=== PATIENT | female | born 1930 | race Caucasian/White ===

== ENCOUNTER 2016-09-04 09:20 | Emergency (ER) | payer MEDICARE, BC ==
[~2016-09-04] VITALS: Ht 165.1 cm; Wt 56.7 kg
[2016-09-04] MEDS ORDERED: IBUP600T26 PO (09:40)
[2016-09-04] MEDS ORDERED: ASPI81TA85 PO (09:40)
[2016-09-04] MEDS ORDERED: KETOROLAC 30 MG/ML VIAL (J1885) IV ONE (10:15)
[2016-09-04 10:33] LABS: BASO % 0.3 % (0.0-1.0); EOS % 0.9 % (0.0-3.0); LARGE UNSTAINED CELL # 0.1 K/mm3 (0.0-0.4); LARGE UNSTAINED CELL % 2.2 % (0.0-4.0); LYMPH # 0.8 K/mm3 (1.5-4.5); LYMPH % 20.7 % (24.0-44.0); MEAN CORPUSCULAR HEMOGLOBIN 29.3 pg (27.0-33.0); MEAN CORPUSCULAR HGB CONC 32.9 g/dl (32.0-36.5); MEAN CORPUSCULAR VOLUME 88.9 fl (80.0-96.0); MONO # 0.2 K/mm3 (0.0-0.8); MONO % 6.7 % (0.0-5.0); NEUTROPHILS # 2.3 K/mm3 (1.8-7.7); NEUTROPHILS % 69.2 % (36.0-66.0); PLATELET COUNT, AUTOMATED 210 k/mm3 (150-450); RED CELL DISTRIBUTION WIDTH 13.4 % (11.5-14.5); WHITE BLOOD COUNT 3.4 K/mm3 (4.0-10.0)
[2016-09-04 11:09] LABS: ALBUMIN 3.2 GM/DL (3.2-5.2); ALKALINE PHOSPHATASE 76 U/L (45-117); ALT/SGPT 19 U/L (12-78); AMYLASE 65 U/L (25-115); ANION GAP 5 MEQ/L (8-16); AST/SGOT 21 U/L (15-37); BILIRUBIN,DIRECT < 0.1 MG/DL (0.0-0.2); BILIRUBIN,TOTAL 0.4 MG/DL (0.2-1.0); BLOOD UREA NITROGEN 13 MG/DL (7-18); CALCIUM LEVEL 8.8 MG/DL (8.8-10.2); CARBON DIOXIDE LEVEL 27 MEQ/L (21-32); CHLORIDE LEVEL 105 MEQ/L (98-107); CREATININE FOR GFR 0.85 MG/DL (0.55-1.02); GLOMERULAR FILTRATION RATE > 60.0 (>32); GLUCOSE, FASTING 91 MG/DL (83-110); SODIUM LEVEL 137 MEQ/L (136-145); TOTAL PROTEIN 7.8 GM/DL (6.4-8.2)
--- NOTE | 2016-09-04 11:26 | REP ---
CHEST, TWO VIEWS: HISTORY: Abdominal pain. COMPARISON: 11/04/2015 There is loss of volume in the right hemithorax. Linear densities are present in the right lower lobe consistent with scarring. A 2.5 cm parenchymal density is present in the left lower lobe. This is unchanged in size compared to the previous study. The heart is normal in size. The pulmonary vasculature is normal in appearance. There is an old compression fracture of a lower thoracic vertebral body. Surgical clips are present in the right hilum. IMPRESSION: 1. Right lower lobe scarring. 2. There is a 2.5 mm parenchymal density in the left lower lobe that is unchanged in size compared to the previous study. Signed by Brad Sarkar MD 09/04/2016 11:28 A
--- NOTE | 2016-09-04 11:55 | REP ---
CT ABDOMEN/PELVIS WITHOUT CONTRAST: CT abdomen/pelvis performed without oral or IV contrast with sagittal and coronal reconstruction images. In the visualized lung bases, there are interstitial fibrotic changes inferiorly on the right as well as on the left with small bullous change in the left lower lobe and a cluster of benign calcifications. Liver, gallbladder, spleen, adrenals, pancreas, and kidneys are grossly unremarkable. There is no evidence of renal or ureteral calculus and no hydroureteronephrosis. There are mild to moderate atherosclerotic calcifications of the abdominal aorta without aneurysm. There is no adenopathy, free air, or free fluid. No bowel wall thickening is seen. No pelvic mass is seen. Urinary bladder appears grossly unremarkable. There is mild compression deformity of T12 vertebral body. This is new when compared to the prior CT of 11/30/2015. Otherwise, there are diffuse degenerative changes. IMPRESSION: No acute abnormalities in the abdomen or pelvis. However, there is a new mild to moderate compression deformity of T12, which was not present on the prior exam of 11/30/2015. Signed by Ashkan Storey MD 09/06/2016 06:55 P
[2016-09-04 12:31] VITALS: BP 178/100
[2016-09-04] MEDS ORDERED: TYLE650T35 PO (13:08)
--- NOTE | 2016-09-05 09:27 | ED PDOC ---
Post-Departure Follow-Up certified letter to pt re formal read of cxr. no pcp documented. needs follow up Winifred Clement MD September 05, 2016 09:27
== END 2016-09-04 13:37 | disposition home or self-care (01) ==
LOC: M ED 10:30
DX: M54.5 Low back pain (principal); I10 Essential (primary) hypertension; S22.089A Unspecified fracture of T11-T12 vertebra, initial encounter for closed fracture; W19.XXXA Unspecified fall, initial encounter; Y92.89 Other specified places as the place of occurrence of the external cause; Y93.89 Activity, other specified; Y99.8 Other external cause status; Z85.118 Personal history of other malignant neoplasm of bronchus and lung; Z79.82 Long term (current) use of aspirin
CPT/HCPCS: 71020; 74176; 80048; 80076; 81001; 82150; 83690; 85025; 87086; 96374; 99283; J1885

== ENCOUNTER 2016-09-14 09:23 | Emergency (ER) | payer MEDICARE, BC ==
[~2016-09-14] VITALS: Ht 165.1 cm; Wt 57.6 kg
[~2016-09-14 09:23] MED LIST: ASPI81TA85 PO; IBUP600T26 PO; TYLE650T35 PO
[2016-09-14] MEDS ORDERED: ASPI81CH PO (09:32)
[2016-09-14] MEDS ORDERED: LEVO25TA5 PO (09:32)
--- NOTE | 2016-09-14 14:06 | REP ---
THORACIC SPINE, THREE VIEWS: HISTORY: T12 fracture. There is no acute fracture or subluxation. There is an old fracture of the T12 vertebral body with minimal height loss. There is loss of height of severe mid and lower thoracic intervertebral discs consistent with disc degeneration. Osteophytes are present in the mid and lower thoracic spine. IMPRESSION: 1. Degenerative change as described above. 2. Old T12 vertebral body fracture with minimal height loss unchanged compared to the previous study. Signed by Brad Sarkar MD 09/14/2016 02:14 P
[2016-09-14 14:38] VITALS: BP 186/84
== END 2016-09-14 14:50 | disposition home or self-care (01) ==
LOC: M ED 11:06 → MERGE 11:06 → M ED 14:50
DX: M54.5 Low back pain (principal); S22.080S Wedge compression fracture of T11-T12 vertebra, sequela; M51.34 Other intervertebral disc degeneration, thoracic region; X58.XXXS Exposure to other specified factors, sequela; Y92.89 Other specified places as the place of occurrence of the external cause; Z91.81 History of falling; E03.9 Hypothyroidism, unspecified; Z79.899 Other long term (current) drug therapy; Z79.82 Long term (current) use of aspirin; Z85.118 Personal history of other malignant neoplasm of bronchus and lung

== ENCOUNTER → 2016-12-17 | Outpatient (CLI) | payer MEDICARE, BC ==
[~2016-12-17] MED LIST changes: +ASPI81CH PO; +IBUP-1022 PO; -IBUP600T26 PO; +LEVO25TA5 PO
[2016-12-17 14:01] LABS: MEAN CORPUSCULAR HEMOGLOBIN 28.9 pg (27.0-33.0); MEAN CORPUSCULAR HGB CONC 31.5 g/dl (32.0-36.5); MEAN CORPUSCULAR VOLUME 91.6 fl (80.0-96.0); WHITE BLOOD COUNT 3.5 K/mm3 (4.0-10.0)
[2016-12-17 14:39] LABS: VITAMIN B12 LEVEL 272 PG/ML (247-911)
[2016-12-17 15:20] LABS: ALBUMIN 3.4 GM/DL (3.2-5.2); ALBUMIN/GLOBULIN RATIO 0.92 (1.00-1.93); ALKALINE PHOSPHATASE 80 U/L (45-117); ALT/SGPT 22 U/L (12-78); ANION GAP 9 MEQ/L (8-16); AST/SGOT 25 U/L (15-37); BILIRUBIN,TOTAL 0.3 MG/DL (0.2-1.0); BLOOD UREA NITROGEN 19 MG/DL (7-18); CALCIUM LEVEL 9.2 MG/DL (8.8-10.2); CARBON DIOXIDE LEVEL 27 MEQ/L (21-32); CHLORIDE LEVEL 104 MEQ/L (98-107); CREATININE FOR GFR 0.81 MG/DL (0.55-1.02); FERRITIN 232 NG/ML (8-252); GLOMERULAR FILTRATION RATE > 60.0 (>32); GLUCOSE, FASTING 76 MG/DL (83-110); PERCENT SATURATION 27.3 % (13.2-45.0); POTASSIUM SERUM 4.1 MEQ/L (3.5-5.1); SODIUM LEVEL 140 MEQ/L (136-145); TOTAL IRON BINDING CAPACITY 249 UG/DL (250-450); TOTAL PROTEIN 7.1 GM/DL (6.4-8.2)
== END ==
LOC: M SMT 11:35
PROVIDERS: ATTEND Nurse Practitioner Adult Health
DX: D50.9 Iron deficiency anemia, unspecified (principal); E78.2 Mixed hyperlipidemia; E03.8 Other specified hypothyroidism; R53.83 Other fatigue

== ENCOUNTER → 2017-10-03 | Outpatient (REF) | payer MEDICARE, BC ==
[2017-10-03 18:57] LABS: HEMOGLOBIN 10.7 g/dl (12.0-15.5); MEAN CORPUSCULAR HEMOGLOBIN 29.8 pg (27.0-33.0); MEAN CORPUSCULAR HGB CONC 32.4 g/dl (32.0-36.5); MEAN CORPUSCULAR VOLUME 91.9 fl (80.0-96.0); PLATELET COUNT, AUTOMATED 204 10^3/uL (150-450); RED BLOOD COUNT 3.59 10^6/uL (4.00-5.40); RED CELL DISTRIBUTION WIDTH 14.5 % (11.5-14.5); WHITE BLOOD COUNT 4.7 10^3/uL (4.0-10.0)
[2017-10-03 19:00] LABS: ALBUMIN 3.5 GM/DL (3.2-5.2); ALBUMIN/GLOBULIN RATIO 0.85 (1.00-1.93); ALKALINE PHOSPHATASE 84 U/L (45-117); ALT/SGPT 26 U/L (12-78); ANION GAP 9 MEQ/L (8-16); AST/SGOT 22 U/L (7-37); BILIRUBIN,TOTAL 0.2 MG/DL (0.2-1.0); BLOOD UREA NITROGEN 26 MG/DL (7-18); CALCIUM LEVEL 8.8 MG/DL (8.8-10.2); CARBON DIOXIDE LEVEL 28 MEQ/L (21-32); CHLORIDE LEVEL 103 MEQ/L (98-107); CREATININE FOR GFR 0.89 MG/DL (0.55-1.30); FERRITIN 241 NG/ML (8-252); GLOMERULAR FILTRATION RATE > 60.0 (>32); GLUCOSE, FASTING 99 MG/DL (70-100); IRON (FE) 53 UG/DL (50-170); PERCENT SATURATION 20.9 % (13.2-45.0); POTASSIUM SERUM 4.4 MEQ/L (3.5-5.1); SODIUM LEVEL 140 MEQ/L (136-145); TOTAL IRON BINDING CAPACITY 254 UG/DL (250-450); TOTAL PROTEIN 7.6 GM/DL (6.4-8.2)
[2017-10-04 08:34] LABS: TOTAL 25(OH) VITAMIN D 46.4 NG/ML (30.0-100.0)
[2017-10-04 08:35] LABS: VITAMIN B12 LEVEL 430 PG/ML (247-911)
== END ==
LOC: M SFHCPLAZ 12:28
DX: D50.9 Iron deficiency anemia, unspecified (principal); R53.83 Other fatigue; E03.8 Other specified hypothyroidism; E78.2 Mixed hyperlipidemia
CPT/HCPCS: 83550